=== PATIENT | male | born 1995 | race Caucasian/White ===

== ENCOUNTER 2021-12-20 18:47 | Emergency (ER) | payer OTHER ==
[2021-12-20 18:54] VITALS: O2SAT 98
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
[2021-12-20 22:15] VITALS: BP 123/86; PULSE 78
--- NOTE | 2021-12-21 09:16 | XRAY ---
Indication: Left facial and bilateral eye pain 3 weeks. Multiple contiguous axial images obtained through the sinuses. Sagittal and coronal reformatted images obtained. Comparison: None Floor of both maxillary and right sphenoid sinuses demonstrates minimal mucosal thickening. Remaining paranasal sinuses, ostiomeatal units, and nasal passages are pneumatized and clear. Very minimal nasoseptal deviation to the right. No acute fracture or suspicious bony lesions. Visualized noncontrasted soft tissues including orbits and base of brain unremarkable. Impression: Minimal paranasal sinus disease and minimal nasal septal deviation as detailed.
== END 2021-12-20 22:10 | disposition home or self-care (01) ==
LOC: ED 18:47
DX: J34.89 Other specified disorders of nose and nasal sinuses (principal); R51.9 Headache, unspecified; Z72.0 Tobacco use; Z28.310 Unvaccinated for COVID-19
CPT/HCPCS: 70486; 99283